=== PATIENT | male | born 1935 | race Caucasian/White ===

== ENCOUNTER 2020-05-19 03:11 | Inpatient (IN) | payer MEDICARE, SELFPAY ==
[2020-05-19] VITALS (20 sets, daily range): BP systolic 132–181; BP diastolic 53–80; PULSE 71–90; RESP 13–18; TEMP 35.9–36.8; O2SAT 91–99; BMI 34.9
--- NOTE | ~2020-05-19 | CT_ITS ---
EXAMINATION: CT abdomen pelvis w con DATE: 05/19/2020 04:58 INDICATION: Urinary retention. Dysuria. Possible bladder stone. TECHNIQUE: Computed tomography (CT) of the abdomen and pelvis was performed with 100 cc Omnipaque 350 intravenous contrast. Automated exposure control and iterative reconstruction technique were employe d. Exam dose: 1404.59 mGy-cm total exam DLP. COMPARISON: None. FINDINGS: Minimal atelectasis at the lower lungs. Normal heart size. Coronary artery prominent calcification. There is trace pericardial fluid. No pleural effusion. 1.4 cm and 2.8 cm hepatic cyst. Calcified hepatic and splenic granulomas consistent with old granulom atous disease. 3.2 cm concentrically calcified gallstone the fundus of the gallbladder. No gallbladder wall thickeni ng or pericholecystic fluid or inflammation. No bile duct or pancreatic duct dilatation. No pancreati c mass lesion or calcification. Normal splenic size. Normal morphology of the adrenal glands. There are multiple bilateral renal cysts, the largest on the right measuring up to 5 cm, the largest on the left up to 5.1 cm. No ureteral calculus or hydroureteronephrosis. There is extensive calcification of the abdominal aorta and branches including iliac arteries. Promin ent calcification of celiac artery and branches, prominent calcification at the origin of the superio r mesenteric artery and renal arteries. No abdominal aortic aneurysm. No intraperitoneal or retroperitoneal or pelvic mass lesion or adenopathy or ascites. Normal appendix. No bowel obstruction, bowel wall thickening, pneumatosis or intraperitoneal free air . There are bilateral fat-containing inguinal hernias. A Patel catheter is present; the balloon is located within the prosthetic urethra. The tip of the Fol ey catheter is barely into the bladder lumen. There is prominent prostatomegaly as well as multiple prostate calcifications. There are multiple sto quinn in the urinary bladder, measuring up to 9.6 mm. There is prominent soft tissue density in the dep endent aspect of the bladder which may represent blood clot 3 versus prostate or urinary bladder neop lasm. There is emphysema of the urinary bladder wall suggesting emphysematous cystitis. There is a prominent sclerotic lesion of the junction of the left femoral head and neck, raising conc dre for possible osteosclerotic metastasis from prostate cancer. Alternatively, this might be a bone island. Consider radionuclide bone scan as clinically appropriate. 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 IMPRESSION: Emphysematous cystitis Bladder stones Debris or blood clot in the dependent aspect of the urinary bladder. Urinary bladder malignancy is no t excluded Severe prostate enlargement, prostate malignancy is not excluded Patel catheter is inflated in the prostatic urethra Cholelithiasis Hepatic and bilateral renal cysts Sclerotic lesion of proximal left femur; consider radionuclide bone scan to differentiate osteosclero tic metastasis from prostate cancer versus benign bone island Reviewed, dictated and finalized at [facility]. Reviewed, dictated and finalized at [facility]. IMPRESSION: Emphysematous cystitis Bladder stones Debris or blood clot in the dependent aspect of the urinary bladder. Urinary bl adder malignancy is not excluded Severe prostate enlargement, prostate malignancy is not excluded Patel catheter is inflated in the prostatic urethra Cholelithiasis Hepatic and bilater
--- NOTE | 2020-05-19 03:18 | ED.MALEGU ---
HPI - Male Genitourinary General Chief complaint: Urogenital-Male Stated complaint: dysuria Time Seen by Provider: 05/19/20 03:17 Source: patient and family Mode of arrival: ambulatory Limitations: no limitations History of Present Illness HPI Narrative: Patient is a 85-year-old gentleman with a history of nephrolithiasis who presents for evaluation of dysuria and hematuria in the setting of recent Patel catheter placement and bladder stone removal. Patient reports that on Thursday 05/17, the patient had any stones removed by Dr. Simeon, in [place], [place]. Patient was then discharged home following the procedure and had inability to urinate later in the afternoon on Saturday, so presented to [facility] for evaluation of urinary retention and had a Patel catheter placed. The patient was then discharged home from the hospital on Saturday, and on developed hematuria and that the catheter was not draining urine, so the patient presented back to [facility] for evaluation of this, and catheter was replaced with a larger Patel catheter, flushed and then was draining appropriately, thus was sent home. The patient was home for approximately 6 hours before he started to experience pain with urination and drainage of the catheter. Pain is described as burning in nature. He denies any flank pain, fever, nausea or vomiting. He denies upper abdominal pain. Patient called his urology group and he was prompted to come to this facility. Review of Systems Review of Systems: Narrative: CONSTITUTIONAL: Denies fever, chills CARDIOVASCULAR: Denies chest pain RESPIRATORY: Denies cough or dyspnea. GASTROINTESTINAL: Denies abdominal pain, nausea, vomiting GENITOURINARY: Reports dysuria and hematuria SKIN: Denies rash or itching. MUSCULOSKELETAL: Denies back pain, joint pain, or myalgia. NEUROLOGIC: Denies headache, numbness, or weakness. [facility] Past Medical History Medical History BPH (benign prostatic hyperplasia) CVA (cerebral vascular accident) Diabetes Hypertension Nephrolithiasis Social History Social History (Updated 05/19/20 @ 04:24 by Kassandra Faulkner MD) Alcohol intake: never Substance use: never Living arrangements: with family Gender identity (if verbalized by the patient): Male Exam Narrative: Exam Narrative: GENERAL: Awake, alert, conversant HEAD: Normocephalic, atraumatic. EYES: PERRLA and EOMI. ENT: Nares clear, no rhinorrhea or epistaxis. Mucous membranes moist. NECK: Supple. CHEST: No respiratory distress, breathing even and non labored HEART: Regular rate, sinus rhythm ABDOMEN: Obese, Non distended, non tender : Indwelling Patel catheter, gross hematuria present EXTREMITIES: Normal range of motion. No edema. SKIN: Warm, dry, no rash. NEURO:No focal deficits. Alert and oriented x3 Course Vital Signs Vital signs: Vital Signs Temperature 36.4 C 05/19/20 03:14 Pulse Rate 71 05/19/20 03:14 Respiratory Rate 16 05/19/20 03:14 Blood Pressure 152/61 H 05/19/20 03:14 Pulse Oximetry 97 05/19/20 03:14 Temperature 36.4 C 05/19/20 03:14 Pulse Rate 71 05/19/20 03:14 Respiratory Rate 16 05/19/20 03:14 Blood Pressure 152/61 H 05/19/20 03:14 Pulse Oximetry 97 05/19/20 03:14 MDM - Male Genitourinary MDM Narrative Medical decision making narrative: Patient presented for evaluation of dysuria and hematuria in the setting of recent Patel catheter placement due to urinary retention secondary to bladder stone removal. At the time of assessment, ABCs are intact and vital signs are stable. Patient is hypertensive, does have a history of hypertension and has not taken his medications this morning. Patient with a leukocytosis of 14.6. Hemoglobin and hematocrit is stable. No acute kidney injury or electrolyte abnormality. Urinalysis notable for trace leukocyte esterase and white blood cells present. Given so
[2020-05-19 04:03] LABS: Basophils Percent Auto 0.2 % (0.2-1.2); Eosinophils Absolute Auto 0.1 K/mm3 (0-0.3); Eosinophils Percent Auto 0.8 % (0-4.4); Hematocrit 38.3 % (42.0-52.0); Hemoglobin 13.3 g/dL (14.0-18.0); Immature Granulocyte Absolute 0.07 K/mm3 (0.00-0.031); Immature Granulocyte Percent A 0.5 % (0-0.5); Lymphocytes Absolute Auto 1.11 K/mm3 (0.9-3.2); Lymphocytes Percent Auto 7.6 % (18.3-44.2); Mean Corpuscular HGB Conc 34.7 g/dl (32-36); Mean Corpuscular Hemoglobin 32.8 pg (26-34); Mean Corpuscular Volume 94.3 fl (80-100); Mean Platelet Volume 9.9 fl (7.4-10.4); Monocytes Percent Auto 13.5 % (2.6-8.5); Neutrophils Absolute Auto 11.3 K/mm3 (1.3-6.7); Neutrophils Percent Auto 77.4 % (45.5-73.1); Platelet Count Result 182 k/mm3 (150-375); Red Blood Count 4.06 M/mm3 (4.6-6.20); Red Cell Distribution Width 13.2 % (11.5-14.5); White Blood Count 14.6 K/mm3 (4.5-10.0)
[2020-05-19 04:15] LABS: Anion Gap 10 mmol/L (8-16); Blood Urea Nitrogen 18 mg/dL (9-20); Calcium 9.5 mg/dL (8.4-10.2); Carbon Dioxide 24 mmol/L (22-30); Chloride 104 mmol/L (98-107); Estimated CRCL calculation 80 ml/min; Estimated Glomerular Filt Rate > 60; Glucose 161 mg/dL (75-110); Potassium 3.3 mmol/L (3.4-5.0); Sodium 138 mmol/L (137-145)
[2020-05-19 04:32] LABS: Add Urine Microscopic? YES; Appearance Urine Cloudy (Clear); Bilirubin Urine Negative (Negative); Blood Urine 2+ (Negative); Glucose Urine UA 1+ mg/dL (Negative); Ketones Urine Negative (Negative); Leukocyte Esterase Ur Trace LEU/UL (Negative); Nitrate Urine Negative (Negative); Protein Urine 2+ mg/dL (Negative); RBC Urine >75 /hpf (0-2); Specific Grav Ur 1.012 (1.001-1.035); Urobilinogen Urine Negative mg/dL (<2.0); WBC Urine 51-75 /hpf
[2020-05-19 04:33] LABS: Color Urine Red (Yellow)
[2020-05-19] MEDS: MORPHINE SULFATE (*CRX) 4 MG/ML INJ IV PUSH ×3 (05:05→11:09)
[2020-05-19] MEDS: SODIUM CHLORIDE 0.9% IV 1,000 ML 999 ML IV CONT (05:13)
[2020-05-19] MEDS: hydrALAZINE HCL 20 MG/ML VIAL IV PUSH (07:05)
--- NOTE | 2020-05-19 08:20 | WPDANESEPPF ---
Anes - Initial Pre Proc Eval Procedure: Operation Date: 05/19/20 12:30 Proposed Procedures p Cystoscopy, Evacuation Bladder Clots - Nathan Agrawal MD Date/Time: 05/19/20 08:20 Surgeon: Isacc Wan MD Pre Op Diagnosis: bladder clot,hypertnsion,urinary retention Patient Data Age: 85 Gender: M Height: 1.85 m Weight: 122 kg Last Vital Signs Temp 36.4 C 05/19/20 03:14 Pulse 72 05/19/20 07:15 Resp 16 05/19/20 07:15 BP 155/66 H 05/19/20 07:15 Pulse Ox 98 05/19/20 07:15 Allergies Allergy/AdvReac Type Severity Reaction Status Date / Time atorvastatin Allergy Mild Hives Verified 05/19/20 12:03 clonidine [From Catapres] Allergy Hives Verified 05/19/20 12:03 Home Medications Medication Instructions Recorded Confirmed Type amlodipine 10 mg PO DAILY 05/19/20 05/19/20 History aspirin [Adult Aspirin EC Low 81 mg PO DAILY 05/19/20 05/19/20 History Strength] atenolol [Tenormin] 25 mg PO BID 05/19/20 05/19/20 History atorvastatin [Lipitor] 40 mg PO DAILY 05/19/20 05/19/20 History clopidogrel [Plavix] 75 mg PO DAILY 05/19/20 05/19/20 History cyproheptadine 4 mg PO DAILY 05/19/20 05/19/20 History escitalopram oxalate 10 mg PO HS 05/19/20 05/19/20 History famotidine 20 mg PO DAILY 05/19/20 05/19/20 History fenofibrate nanocrystallized 145 mg PO DAILY 05/19/20 05/19/20 History finasteride 5 mg PO DAILY 05/19/20 05/19/20 History hydrochlorothiazide 12.5 mg PO DAILY 05/19/20 05/19/20 History metformin 500 mg PO BID 05/19/20 05/19/20 History nitrofurantoin monohyd/m-cryst 100 mg PO Q12H 05/19/20 05/19/20 History [Macrobid] olopatadine [Pataday] drp OPHTHALMIC (EYE) DAILY PRN 05/19/20 History rifampin 300 mg PO BID 05/19/20 05/19/20 History Laboratory Tests 05/19/20 05/19/20 05/19/20 03:58 03:58 04:04 WBC 14.6 K/mm3 H K/mm3 (4.5-10.0) RBC 4.06 M/mm3 L M/mm3 (4.6-6.20) Hgb 13.3 g/dL L g/dL (14.0-18.0) Hct 38.3 % L % (42.0-52.0) MCV 94.3 fl fl (80-100) MCH 32.8 pg pg (26-34) MCHC 34.7 g/dl g/dl (32-36) RDW 13.2 % % (11.5-14.5) Plt Count 182 k/mm3 k/mm3 (150-375) MPV 9.9 fl fl (7.4-10.4) Immature Gran % (Auto) 0.5 % % (0-0.5) Neut % (Auto) 77.4 % H % (45.5-73.1) Lymph % (Auto) 7.6 % L % (18.3-44.2) [place] % (Auto) 13.5 % H % (2.6-8.5) Eos % (Auto) 0.8 % % (0-4.4) Baso % (Auto) 0.2 % % (0.2-1.2) Lymph # (Auto) 1.11 K/mm3 K/mm3 (0.9-3.2) [place] # (Auto) 2.0 K/mm3 H K/mm3 (0.1-0.6) Eos # (Auto) 0.1 K/mm3 K/mm3 (0-0.3) Baso # (Auto) 0.0 K/mm3 K/mm3 (0.0-0.1) Abs Immat Gran (auto) 0.07 K/mm3 H K/mm3 (0.00-0.031) Absolute Neuts (auto) 11.3 K/mm3 H K/mm3 (1.3-6.7) Absolute Nucleated RBC 0.0 K/mm3 K/mm3 (0.0-0.012) Nucleated RBC % 0.0 % % (0.0-0.2) Sodium 138 mmol/L mmol/L (137-145) Potassium 3.3 mmol/L L mmol/L (3.4-5.0) Chloride 104 mmol/L mmol/L (98-107) Carbon Dioxide 24 mmol/L mmol/L (22-30) Anion Gap 10 mmol/L mmol/L (8-16) BUN 18 mg/dL mg/dL (9-20) Creatinine 0.80 mg/dL mg/dL (0.7-1.3) Estim Creat Clear Calc 80 ml/min ml/min Estimated GFR > 60 (59 - ) Glucose 161 mg/dL H mg/dL (75-110) Calcium 9.5 mg/dL mg/dL (8.4-10.2) Urine Color Red H (Yellow) Urine Appearance Cloudy H (Clear) Urine pH 7.0 (5.0-9.0) Ur Specific Horace 1.012 (1.001-1.035) Urine Protein 2+ mg/dL H mg/dL (Negative) Urine Glucose (UA) 1+ mg/dL H mg/dL (Negative) Urine Ketones Negative mg/dL mg/dL (Negative) Ur Blood (Man) 2+ H (Negative) Urine Nitrate Negative (Negative) Urine Bilirubin Negative
--- NOTE | 2020-05-19 08:55 | PC.NURSE ---
This patient, Cody Stanford, was admitted to Medical Room 349-01. Patient/family oriented to hospital policies and general routines including ID bracelet, bed and alarms, visiting hours, pain management, procedures, bathroom and other care routines, personal items, smoking policy, room service/diet, and visiting hours. Information on how to activate the Rapid Response Team has been discussed. Patient/Family are encouraged to report perceived risks to care and to ask questions if they do not understand what they are told or what they should do.
[2020-05-19 09:19] LABS: Hematocrit 39.1 % (42.0-52.0); Hemoglobin 13.7 g/dL (14.0-18.0); Mean Corpuscular Hemoglobin 32.9 pg (26-34); Mean Corpuscular Volume 93.8 fl (80-100); Mean Platelet Volume 9.9 fl (7.4-10.4); Platelet Count Result 191 k/mm3 (150-375); Red Blood Count 4.17 M/mm3 (4.6-6.20); Red Cell Distribution Width 13.2 % (11.5-14.5); White Blood Count 15.5 K/mm3 (4.5-10.0)
--- NOTE | 2020-05-19 10:35 | WPDURCON ---
Assessment and Plan Assessment and plan (1) Hematuria: Code(s): R31.9 - Hematuria, unspecified Status: Acute Assessment and Plan: Will plan to go to the OR today: Cystoscopy with bladder clot evacuation. (2) Blood clot in bladder: Code(s): N32.89 - Other specified disorders of bladder Status: Acute Assessment and Plan: Keep NPO, obtain consent. (3) Elevated PSA: Code(s): R97.20 - Elevated prostate specific antigen [PSA] Status: Acute Assessment and Plan: PSA of 4.16 (8.32 adjusted) not terribly high for his age, but would need further evaluation by Dr. Stallings. Urology Consult Note HPI Date Seen: 05/19/20 Requesting Physician: Isacc Wan MD Primary Care Provider: Rui Deluna, Consult Narrative Narrative: Cody Stanford is a 85 year old male who presented to our ER around 0300 this morning for gross hematuria, abdominal pain and a catheter that wouldn't drain. He had a bladder stone removal on Saturday05/17/[address] Stallings in [place]. He was discharged home and then became unable to urinate, therefore he went back to the ER in [place] Saturday05/18/2020 for retention and had his henderson placed, he was irrigated and discharged home. He then noted clogging of his henderson last night and was unable to see it drain, he states the urine has been very bloody since. He denies flank or abdominal pain, nausea, vomiting, fever or chills. WBC is 14.6 and creatinine is 0.80, UA appears to show a UTI, but urine culture is pending. CT abdomen/pelvis shows severely enlarged prostate and clots in the bladder, his henderson is in place, but there is a noted bone lesion in the femur, which is concerning for possible metastatic prostate cancer. PSA on 04/18/2020 from our office records show a level of 4.16 (adjusted, 8.32 on FInasteride). Review of Systems Cardiovascular: Cardiovascular: Denies chest pain Respiratory: Respiratory: Reports no additional respiratory complaints Gastrointestinal: Gastrointestinal: Reports abdominal pain, Denies nausea and Denies vomiting Genitourinary: Genitourinary: Reports hematuria and Reports other (henderson in place) [facility] Past Medical History Medical History BPH (benign prostatic hyperplasia) CVA (cerebral vascular accident) Diabetes Hypertension Nephrolithiasis Obesity Social History Social History Smoking status: Never smoker Alcohol intake: former Substance use: never Living arrangements: with family Gender identity (if verbalized by the patient): Male Spiritual care concerns: No Meds Home Medications and Allergies Home Medications Medication Instructions Recorded Confirmed Type amlodipine 05/19/20 History aspirin [Adult Aspirin EC Low 05/19/20 History Strength] atenolol [Tenormin] 05/19/20 History atorvastatin [Lipitor] 05/19/20 05/19/20 History clopidogrel [Plavix] 05/19/20 History cyproheptadine 05/19/20 History escitalopram oxalate mg 05/19/20 History famotidine 05/19/20 History fenofibrate nanocrystallized mg PO 05/19/20 History finasteride mg 05/19/20 History hydrochlorothiazide 05/19/20 History metformin mg 05/19/20 History olopatadine [Pataday] drp 05/19/20 History tamsulosin mg PO 05/19/20 05/19/20 History Allergies Allergy/AdvReac Type Severity Reaction Status Date / Time atorvastatin Allergy Mild Hives Verified 05/19/20 08:01 clonidine [From Catapres] Allergy Hives Verified 05/19/20 08:01 Vital Signs Vital Signs - 24 hr 05/19/20 03:14 05/19/20 07:15 05/19/20 08:50 Temperature 97.6 F Pulse Rate 71 72 75 Respiratory Rate 16 16 16 Blood Pressure 152/61 H 155/66 H 181/66 H Pulse Oximetry 97 98 98 05/19/20 09:48 Temperature 97.1 F L Pulse Rate 82 Respiratory Rate 16 Blood Pressure 167/54 H Pulse Oximetry 99 Exam Resp: Effort
--- NOTE | 2020-05-19 12:00 | PC.NURSE ---
Pt to OR per bed.
--- NOTE | 2020-05-19 12:35 | WPDHPUPDATE1 ---
History and Physical Update Update Date/Time: 05/19/20 12:35 History and Physical has been reviewed, including an updated exam of the patient. There are NO changes in the patient's condition. Risks, benefits, and alternatives have been discussed and questions answered. Patient agrees to proceed with procedure.
[2020-05-19] MEDS: LIDOCAINE HCL 2% GEL UROJET 10 ML PKG MUCOUS MEM (12:51)
--- NOTE | 2020-05-19 13:21 | P.OP_ITS ---
Procedure Note - Detailed Date of procedure: 05/19/20 Pre-op diagnosis: bladder clot,hypertnsion,urinary retention Post-op diagnosis: same Procedure performed: Cystoscopy with clot evacuation, extraction of bladder calculi x3, fulguration of bladder neck prostatic urethra. Description of procedure: Patient is taken to the operative suite and correctly identified. Once anesthesia was obtained he is placed in the dorsal lithotomy position and prepped and draped usual sterile fashion. Twenty-four Nepali scope was inserted in the bladder. Numerous clots were evacuated approximately 250 cc worth. Reinspection reveals 3 bladder calculi which were retrieved and sent for analysis. There was no active bleeding in the bladder however his bladder neck and prostatic urethra were extremely vascular in of oozing in nature. Using a rollerball we attempted to fulgurated as best we could. Given the fact that he has been on Plavix that is difficult task at this time. We achieved this much hemostasis as we could. 2% viscous lidocaine was inserted urethra and a 24 three-way was placed with 30 cc in the balloon. Catheter was placed on some gentle traction. He is taken recovery stable condition. I will recommend continued holding of Plavix until this bleeding stops. Anesthesia: GLMA Surgeon: Nathan Agrawal MD Drains: Yes Packing: No Pathology: yes Complications: No immediate complications Condition: stable Disposition: PACU
[2020-05-19] MEDS: LACTATED RINGERS 1,000 ML 30 ML IV CONT (13:26)
--- NOTE | 2020-05-19 14:00 | SUR.PHASEI ---
PT AROUSES TO VERBAL STIMULI. SHAKES HEAD YES TO PAIN, THEN FALLS BACK ASLEEP. HOB ELEVATED 30 DEGREES.
--- NOTE | 2020-05-19 14:12 | SUR.PHASEI ---
SAO2 DROPS TO 89-90% ON ROOM AIR. RESP EVEN UNLABORED. P,W,D. O2 2L NC APPLIED.
[2020-05-19 14:22] LABS: Glucose Point of Care 149 (65-105)
--- NOTE | 2020-05-19 14:49 | SUR.PHASEI ---
PT AWAKE AND ALERT. DENIES PAIN. MEETS DISCHARGE CRITIERIA.
--- NOTE | 2020-05-19 16:12 | PM.IMHP ---
H&P: HPI History of Present Illness Date/Time: 05/19/20 16:12 Chief complaint: bladder clot,hypertnsion,urinary retention Narrative: Cody Stanford is a 85 year old male see history of kidney stone he recently was seen by his urologist on 05/17 and had a stone removed and Patel catheter was placed, patient states he was doing fine later that day he developed the hematuria and was difficult to urinate and his Patel was not draining, patient went back to the emergency department in [place], his Patel was irrigated and reinserted patient was able to drain it was discharged home however he says after 6 hours he again developed difficulty draining his Patel, he contacted his urologist and patient was asked return to the emergency department here. in the emergency depart his Patel was replaced, there was a concerned the patient may have UTI started the patient on Rocephin, under stress and pain patient blood pressure was elevated and was given hydralazine. currently patient states is feeling little better is scheduled to see his urologist and will have cystoscopy and blood clot evacuation and further recommendation to follow. Review of Systems Review of Systems: All systems reviewed & are unremarkable except as noted in HPI and below PMFSH Past Medical History Medical History BPH (benign prostatic hyperplasia) CVA (cerebral vascular accident) Diabetes Hypertension Nephrolithiasis Obesity Social History Social History Smoking status: Never smoker Alcohol intake: former Substance use: never Living arrangements: with family Gender identity (if verbalized by the patient): Male Spiritual care concerns: No Meds Home Medications and Allergies Home Medications Medication Instructions Recorded Confirmed Type amlodipine 10 mg PO DAILY 05/19/20 05/19/20 History aspirin [Adult Aspirin EC Low 81 mg PO DAILY 05/19/20 05/19/20 History Strength] atenolol [Tenormin] 25 mg PO BID 05/19/20 05/19/20 History atorvastatin [Lipitor] 40 mg PO DAILY 05/19/20 05/19/20 History clopidogrel [Plavix] 75 mg PO DAILY 05/19/20 05/19/20 History cyproheptadine 4 mg PO DAILY 05/19/20 05/19/20 History escitalopram oxalate 10 mg PO HS 05/19/20 05/19/20 History famotidine 20 mg PO DAILY 05/19/20 05/19/20 History fenofibrate nanocrystallized 145 mg PO DAILY 05/19/20 05/19/20 History finasteride 5 mg PO DAILY 05/19/20 05/19/20 History hydrochlorothiazide 12.5 mg PO DAILY 05/19/20 05/19/20 History metformin 500 mg PO BID 05/19/20 05/19/20 History nitrofurantoin monohyd/m-cryst 100 mg PO Q12H 05/19/20 05/19/20 History [Macrobid] olopatadine [Pataday] drp OPHTHALMIC (EYE) DAILY PRN 05/19/20 History rifampin 300 mg PO BID 05/19/20 05/19/20 History Allergies Allergy/AdvReac Type Severity Reaction Status Date / Time atorvastatin Allergy Mild Hives Verified 05/19/20 12:03 clonidine [From Catapres] Allergy Hives Verified 05/19/20 12:03 Vital Signs Vital Signs - 24 hr 05/19/20 03:14 05/19/20 07:15 05/19/20 08:50 Temperature 97.6 F Pulse Rate 71 72 75 Respiratory Rate 16 16 16 Blood Pressure 152/61 H 155/66 H 181/66 H Pulse Oximetry 97 98 98 05/19/20 09:48 05/19/20 12:00 05/19/20 13:26 Temperature 97.1 F L 97.6 F Pulse Rate 82 82 81 Respiratory Rate 16 14 Blood Pressure 167/54 H 132/53 L Pulse Oximetry 99 97 05/19/20 13:40 05/19/20 13:55 05/19/20 14:10 Temperature Pulse Rate 89 88 90 Respiratory Rate 13 13 14 Blood Pressure 168/65 H 172/70 H 164/68 H Pulse Oximetry 98 98 91 05/19/20 14:25 05/19/20 14:40 05/19/20 15:15 Temperature 97.1 F L Pulse Rate 90 89 85 Respiratory Rate 18 15 16 Blood Pressure 148/63 H 144/61 H 154/60 H Pulse Oximetry 94 96 98 05/19/20 15:52 Temperature 97.1 F L Pulse Rate 85 Respiratory Rate 16 Blood Pressure 160/56 H Pulse Oximetry 98 Exam Narrative:
[2020-05-19] MEDS: NITROFURANTOIN MONOHYD MACROCR 100 MG CAP PO (16:13)
[2020-05-19] MEDS: DEXTROSE 5%/LACTATED RINGERS 1,000 ML 125 ML IV CONT ×2 (16:14→23:43)
[2020-05-19] MEDS: metFORMIN HCL 500 MG TABLET PO (17:30)
[2020-05-19] MEDS: atenoloL 25 MG TABLET PO (17:30)
[2020-05-19] MEDS: rifAMPin 300 MG CAPSULE PO (17:30)
[2020-05-19] MEDS: DOCUSATE SODIUM 100 MG CAPSULE PO (17:30)
[2020-05-19] MEDS: ESCITALOPRAM OXALATE 10 MG TABLET PO (20:02)
[2020-05-20] VITALS (12 sets, daily range): BP systolic 160–189; BP diastolic 51–64; PULSE 69–80; RESP 18; TEMP 36.3–36.8; O2SAT 94–98
[2020-05-20] MEDS: NITROFURANTOIN MONOHYD MACROCR 100 MG CAP PO ×2 (03:33→15:40)
[2020-05-20 05:46] LABS: Hematocrit 32.3 % (42.0-52.0); Hemoglobin 11.1 g/dL (14.0-18.0)
[2020-05-20 05:59] LABS: Anion Gap 7 mmol/L (8-16); Blood Urea Nitrogen 13 mg/dL (9-20); Calcium 8.5 mg/dL (8.4-10.2); Carbon Dioxide 28 mmol/L (22-30); Chloride 105 mmol/L (98-107); Estimated CRCL calculation 80 ml/min; Estimated Glomerular Filt Rate > 60; Glucose 168 mg/dL (75-110); Potassium 2.9 mmol/L (3.4-5.0); Sodium 140 mmol/L (137-145)
[2020-05-20] MEDS: rifAMPin 300 MG CAPSULE PO ×2 (06:35→15:40)
[2020-05-20] MEDS: DEXTROSE 5%/LACTATED RINGERS 1,000 ML 125 ML IV CONT ×2 (08:45→20:40)
[2020-05-20] MEDS: FENOFIBRATE NANOCRYSTALLIZED 145 MG TABLET PO (08:46)
[2020-05-20] MEDS: DOCUSATE SODIUM 100 MG CAPSULE PO ×2 (08:46→17:16)
[2020-05-20] MEDS: hydroCHLOROthiazide 12.5 MG CAPSULE PO (08:46)
[2020-05-20] MEDS: amLODIPine BESYLATE 5 MG TABLET 10 MG PO (08:46)
[2020-05-20] MEDS: metFORMIN HCL 500 MG TABLET PO ×2 (08:46→17:16)
[2020-05-20] MEDS: FAMOTIDINE 20 MG TABLET PO (08:47)
[2020-05-20] MEDS: ATORVASTATIN 40 MG TABLET PO (08:47)
[2020-05-20] MEDS: CYPROHEPTADINE HCL 4 MG TABLET PO (08:47)
[2020-05-20] MEDS: CEPHALEXIN 500 MG CAPSULE PO ×4 (08:47→20:47)
[2020-05-20] MEDS: atenoloL 25 MG TABLET PO ×2 (08:47→17:15)
[2020-05-20] MEDS: FINASTERIDE 5 MG TABLET PO (08:48)
[2020-05-20] MEDS: HYDROcodone/acetaminophen (*CRX) 5-325 MG TABLET 1 TAB PO (08:53)
[2020-05-20 09:31] LABS: Hematocrit 33.4 % (42.0-52.0); Hemoglobin 11.3 g/dL (14.0-18.0); Mean Corpuscular HGB Conc 33.8 g/dl (32-36); Mean Corpuscular Hemoglobin 33.1 pg (26-34); Mean Corpuscular Volume 97.9 fl (80-100); Mean Platelet Volume 10.7 fl (7.4-10.4); Platelet Count Result 164 k/mm3 (150-375); Red Blood Count 3.41 M/mm3 (4.6-6.20); Red Cell Distribution Width 13.5 % (11.5-14.5); White Blood Count 10.5 K/mm3 (4.5-10.0)
[2020-05-20] MEDS: POTASSIUM CHLORIDE 20 MEQ PACKET (FOR LIQUID) 40 MEQ PO (11:01)
--- NOTE | 2020-05-20 13:27 | PM.IMPN ---
Progress Note: A&P Assessment and Plan (1) Acute retention of urine: Code(s): R33.8 - Other retention of urine Status: Acute Assessment and Plan: 05/20/20 13:27 Cody Stanford is a 85 year old male see history of kidney stone he recently was seen by his urologist on 05/17 and had a stone removed and Patel catheter was placed, patient states he was doing fine later that day he developed the hematuria and was difficult to urinate and his Patel was not draining, patient went back to the emergency department in [place], his Patel was irrigated and reinserted patient was able to drain it was discharged home however he says after 6 hours he again developed difficulty draining his Patel, he contacted his urologist and patient was asked return to the emergency department here. in the emergency depart his Patel was replaced, there was a concerned the patient may have UTI started the patient on Rocephin, under stress and pain patient blood pressure was elevated and was given hydralazine. currently patient states is feeling little better is scheduled to see his urologist and will have cystoscopy and blood clot evacuation and further recommendation to follow. On 05/19 patient was seen by urologist and taken to urology lab the bladder was irrigated and 3 ways Patel was placed for CBI it was difficult to control the bleeding as patient had taking Plavix, today 05/20 CBI continue to for and the urine is more pinkish starter than red, patient states is feeling much better has less pain, patient denies any abdominal pain nausea or vomiting fever or chills, plan is to continue CBI until urine is clear with as less blood as possible, patient will be seen by urology and further recommendation to follow and discharge plan. patient's is present in the room. (2) Hypertension: Code(s): I10 - Essential (primary) hypertension Status: Inactive Assessment and Plan: continue home regimen and monitor (3) Diabetes: Code(s): E11.9 - Type 2 diabetes mellitus without complications Status: Inactive Assessment and Plan: will continue home regimen and monitor Subjective Date/time seen: 05/20/20 13:27 Cody Stanford is a 85 year old male see history of kidney stone he recently was seen by his urologist on 05/17 and had a stone removed and Patel catheter was placed, patient states he was doing fine later that day he developed the hematuria and was difficult to urinate and his Patel was not draining, patient went back to the emergency department in [place], his Patel was irrigated and reinserted patient was able to drain it was discharged home however he says after 6 hours he again developed difficulty draining his Patel, he contacted his urologist and patient was asked return to the emergency department here. in the emergency depart his Patel was replaced, there was a concerned the patient may have UTI started the patient on Rocephin, under stress and pain patient blood pressure was elevated and was given hydralazine. currently patient states is feeling little better is scheduled to see his urologist and will have cystoscopy and blood clot evacuation and further recommendation to follow. On 05/19 patient was seen by urologist and taken to urology lab the bladder was irrigated and 3 ways Patel was placed for CBI it was difficult to control the bleeding as patient had taking Plavix, today 05/20 CBI continue to for and the urine is more pinkish starter than red, patient states is feeling much better has less pain, patient denies any abdominal pain nausea or vomiting fever or chills, plan is to continue CBI until urine is clear with as less blood as possible, patient will be seen by urology and further recommendation to follow and discharge plan. patient's is present in the room. Review of Systems Review of Systems: All systems reviewed & are unremarkable except as noted in HPI and below Exam Narrative: Ex
--- NOTE | 2020-05-20 14:22 | WPDANESPN ---
Anes - Prog Note Post-Op Date/Time: 05/20/20 14:22 Cardiovascular status: normal Respiratory status: normal Airway patency: baseline Mental status: baseline Post-Op hydration status: normal Vital Signs: Last Vital Signs Temp 98.3 F 05/20/20 05:55 Pulse 70 05/20/20 12:00 Resp 18 05/20/20 05:55 BP 189/64 H 05/20/20 05:55 Pulse Ox 94 05/20/20 09:45 Pain Score (VAS): 07/31 I/O: Intake & Output 05/19/20 05/20/20 05/20/20 23:59 07:59 15:59 Intake Total 1292 1250 480 Output Total 750 Balance 1292 500 480 Laboratory Tests 05/20/20 05:14 05/20/20 05:14 05/19/20 05/20/20 05/20/20 14:19 05:11 05:14 WBC 10.5 H RBC 3.41 L Hgb 11.3 L 11.1 L Hct 33.4 L 32.3 L MCV 97.9 MCH 33.1 MCHC 33.8 RDW 13.5 Plt Count 164 MPV 10.7 H Sodium Potassium Chloride Carbon Dioxide Anion Gap BUN Creatinine Estim Creat Clear Calc Estimated GFR Glucose POC Capillary Glucose 149 H Calcium 05/20/20 05:14 WBC RBC Hgb Hct MCV MCH MCHC RDW Plt Count MPV Sodium 140 Potassium 2.9 L Chloride 105 Carbon Dioxide 28 Anion Gap 7 L BUN 13 D Creatinine 0.80 Estim Creat Clear Calc 80 Estimated GFR > 60 Glucose 168 H POC Capillary Glucose Calcium 8.5 Microbiology 05/19/20 04:04 Urine Clean Catch Urine Culture - Final Post-procedural complaints: none Patient Feedback: Patient satisfied with anesthetic care.
--- NOTE | 2020-05-20 15:12 | WPDUROPN2 ---
Progress Note: A&P Assessment and Plan (1) Blood clot in bladder: Code(s): N32.89 - Other specified disorders of bladder Status: Acute (2) Hematuria: Code(s): R31.9 - Hematuria, unspecified Status: Acute Assessment and Plan: Wean CBI to off when clear. Patient will go home with henderson catheter when urine is clear, then follow up in the office with Dr. Stallings for a voiding trial in a week or two in [place]. (3) Acute retention of urine: Code(s): R33.8 - Other retention of urine Status: Acute Subjective Subjective Date/Time Seen: 05/20/20 15:12 POD #1 Cystoscopy, bladder clot removal, fulgeration of bladder, bladder stone removal. Patient doing well, urine remains pink on CBI. Review of Systems Cardiovascular: Cardiovascular: Denies chest pain Respiratory: Respiratory: Reports no additional respiratory complaints Gastrointestinal: Gastrointestinal: Denies abdominal pain, Denies nausea and Denies vomiting Genitourinary: Genitourinary: Reports hematuria Exam Resp: Effort & Inspection: normal respiratory effort Cardio: Rate: regular rate GI: GI Palp: Yes Soft to palpation and No Tenderness to palpation present (GI) : General: Yes no CVA tenderness Urinary Catheter: Urinary Catheter: patent and draining, urine clear and urine pink Extrem: General: no edema Objective Data Vital Signs Vital Signs: Vital Signs - 24 hr 05/19/20 15:15 05/19/20 15:52 05/19/20 16:00 Temperature 97.1 F L 97.1 F L Pulse Rate 85 85 85 Respiratory Rate 16 16 Blood Pressure 154/60 H 160/56 H Pulse Oximetry 98 98 05/19/20 16:34 05/19/20 17:00 05/19/20 17:30 Temperature 96.7 F L 96.8 F L Pulse Rate 81 86 86 Respiratory Rate 16 18 Blood Pressure 139/59 L 175/65 H Pulse Oximetry 99 96 05/19/20 19:59 05/19/20 20:00 05/19/20 23:39 Temperature 98.2 F 97.9 F Pulse Rate 79 75 72 Respiratory Rate 18 17 Blood Pressure 178/80 H 169/66 H Pulse Oximetry 98 95 05/20/20 00:00 05/20/20 04:00 05/20/20 05:55 Temperature 98.3 F Pulse Rate 72 69 75 Respiratory Rate 18 Blood Pressure 189/64 H Pulse Oximetry 97 05/20/20 08:00 05/20/20 08:47 05/20/20 09:45 Temperature Pulse Rate 77 75 Respiratory Rate Blood Pressure Pulse Oximetry 94 05/20/20 12:00 05/20/20 15:02 Temperature 97.8 F Pulse Rate 70 71 Respiratory Rate 18 Blood Pressure 162/57 H Pulse Oximetry 98 Intake/Output Intake/Output: Intake & Output 05/17/20 05/18/20 05/19/20 05/20/20 23:59 23:59 23:59 23:59 Intake Total 2592 1730 Output Total 5800 750 Balance -3208 980 Meds/Results Medications: Active Medications Generic Name Dose Route Start Last Admin Trade Name Freq PRN Reason Stop Dose Admin Hydrocodone Bitart/Acetaminophen 1 tab 05/19/20 14:49 05/20/20 08:53 Hydrocodone/Acetaminophen (*Crx) 5-325 Mg Tablet PO 1 tab Q4H PRN Administration Pain Rated 1-6 Amlodipine Besylate 10 mg 05/20/20 09:00 05/20/20 08:46 Amlodipine Besylate 5 Mg Tablet PO 10 mg DAILY ISIS Administration Atenolol 25 mg 05/19/20 17:00 05/20/20 08:47 Atenolol 25 Mg Tablet PO 25 mg BID ISIS Administration Atorvastatin Calcium 40 mg 05/20/20 09:00 05/20/20 08:47 Atorvastatin 40 Mg Tablet PO 40 mg DAILY ISIS Administration Cephalexin HCl 500 mg 05/20/20 09:00 05/20/20 12:36 Cephalexin 500 Mg Capsule PO 500 mg QID ISIS Administration Cyproheptadine HCl 4 mg 05/20/20 09:00 05/20/20 08:47 Cyproheptadine Hcl 4 Mg Tablet PO 4 mg DAILY ISIS Administration Docusate Sodium 100 mg 05/19/20 17:00 05/20/20 08:46 Docusate Sodium 100 Mg Capsule PO 100 mg BID ISIS Administration Escitalopram Oxalate 10 mg 05/19/20 21:00 05/19/20 20:02 Escitalopram Oxalate 10 Mg Tablet PO 10 mg HS ISIS Administration Famotidine 20 mg 05/20/20 09:00 05/20/20 08:47 Famotidine 20 Mg Tablet PO 20 mg DAILY ISIS A
[2020-05-20 16:09] LABS: Anion Gap 6 mmol/L (8-16); Blood Urea Nitrogen 11 mg/dL (9-20); Calcium 9.2 mg/dL (8.4-10.2); Carbon Dioxide 29 mmol/L (22-30); Chloride 106 mmol/L (98-107); Estimated CRCL calculation 80 ml/min; Estimated Glomerular Filt Rate > 60; Glucose 118 mg/dL (75-110); Magnesium 1.8 mg/dL (1.6-2.3); Potassium 3.5 mmol/L (3.4-5.0); Sodium 141 mmol/L (137-145)
[2020-05-20] MEDS: ESCITALOPRAM OXALATE 10 MG TABLET PO (20:47)
[2020-05-20] MEDS: MORPHINE SULFATE (*CRX) 2 MG/ML INJ IV PUSH (22:00)
[2020-05-21] VITALS: PULSE 67
[2020-05-21] MEDS: HYDROcodone/acetaminophen (*CRX) 5-325 MG TABLET 1 TAB PO ×3 (02:14→10:57)
[2020-05-21] MEDS: NITROFURANTOIN MONOHYD MACROCR 100 MG CAP PO (02:14)
[2020-05-21 04:00] VITALS: PULSE 68
[2020-05-21 04:14] VITALS: BP 154/60; PULSE 73; RESP 18; TEMP 36.1; O2SAT 98
[2020-05-21] MEDS: DEXTROSE 5%/LACTATED RINGERS 1,000 ML 125 ML IV CONT (04:47)
[2020-05-21 06:05] LABS: Anion Gap 8 mmol/L (8-16); Blood Urea Nitrogen 11 mg/dL (9-20); Calcium 8.5 mg/dL (8.4-10.2); Carbon Dioxide 25 mmol/L (22-30); Chloride 106 mmol/L (98-107); Estimated CRCL calculation 90 ml/min; Estimated Glomerular Filt Rate > 60; Glucose 163 mg/dL (75-110); Potassium 3.1 mmol/L (3.4-5.0); Sodium 139 mmol/L (137-145)
[2020-05-21] MEDS: rifAMPin 300 MG CAPSULE PO (06:20)
[2020-05-21 08:00] VITALS: PULSE 73
[2020-05-21] MEDS: CEPHALEXIN 500 MG CAPSULE PO ×2 (08:28→12:24)
[2020-05-21] MEDS: metFORMIN HCL 500 MG TABLET PO (08:28)
[2020-05-21] MEDS: amLODIPine BESYLATE 5 MG TABLET 10 MG PO (08:28)
[2020-05-21] MEDS: ATORVASTATIN 40 MG TABLET PO (08:28)
[2020-05-21 08:29] VITALS: PULSE 75
[2020-05-21] MEDS: FAMOTIDINE 20 MG TABLET PO (08:29)
[2020-05-21] MEDS: hydroCHLOROthiazide 12.5 MG CAPSULE PO (08:29)
[2020-05-21] MEDS: CYPROHEPTADINE HCL 4 MG TABLET PO (08:29)
[2020-05-21] MEDS: atenoloL 25 MG TABLET PO (08:29)
[2020-05-21] MEDS: FINASTERIDE 5 MG TABLET PO (08:29)
[2020-05-21] MEDS: DOCUSATE SODIUM 100 MG CAPSULE PO (08:29)
[2020-05-21] MEDS: FENOFIBRATE NANOCRYSTALLIZED 145 MG TABLET PO (08:29)
[2020-05-21 09:00] LABS: Hematocrit 32.2 % (42.0-52.0); Hemoglobin 10.9 g/dL (14.0-18.0); Mean Corpuscular HGB Conc 33.9 g/dl (32-36); Mean Corpuscular Hemoglobin 32.9 pg (26-34); Mean Corpuscular Volume 97.3 fl (80-100); Mean Platelet Volume 10.7 fl (7.4-10.4); Platelet Count Result 159 k/mm3 (150-375); Red Blood Count 3.31 M/mm3 (4.6-6.20); Red Cell Distribution Width 13.2 % (11.5-14.5); White Blood Count 8.8 K/mm3 (4.5-10.0)
[2020-05-21] MEDS: POTASSIUM CHLORIDE 20 MEQ PACKET (FOR LIQUID) 40 MEQ PO (10:56)
[2020-05-21 12:00] VITALS: PULSE 72
--- NOTE | 2020-05-21 12:24 | WPDUROPN2 ---
Progress Note: A&P Assessment and Plan (1) Hematuria: Qualifiers: Hematuria type: gross Qualified Code(s): R31.0 - Gross hematuria Code(s): R31.9 - Hematuria, unspecified Status: Acute Assessment and Plan: GH s/p cystolithalopaxy on ASA/plavix. Now appears to be resolved. Looks okay for discharge today with santiago, he will follow up with dr grady on saturday at the [place] office continue finasteride hold plavix another 5d if okay. 81 mg asa probably okay to resume if he needs it. Subjective Subjective Date/Time Seen: 05/21/20 12:24 Interval history: CBI clamped at least an hour ago- urine crystal clear Review of Systems Review of Systems: All systems reviewed & are unremarkable except as noted in HPI and below Exam Const: General: cooperative, healthy appearing and no acute distress Nutritional Appearance: overweight Orientation/consciousness: oriented to person, oriented to place and oriented to time Resp: Effort & Inspection: normal respiratory effort Cardio: Rate: regular rate : General: Yes no CVA tenderness Other: urine clear in tubing from henderson-- urine in bag a light pink Urinary Catheter: Urinary Catheter: patent and draining, urine clear and urine pink Back/Spine/Pelvis: Back: no CVA tenderness Extrem: General: no edema Objective Data Vital Signs Vital Signs: Vital Signs - 24 hr 05/20/20 15:02 05/20/20 16:00 05/20/20 17:15 Temperature 36.6 C Pulse Rate 71 74 80 Respiratory Rate 18 Blood Pressure 162/57 H Pulse Oximetry 98 05/20/20 19:33 05/20/20 20:00 05/21/20 00:00 Temperature 36.3 C L Pulse Rate 71 70 67 Respiratory Rate 18 Blood Pressure 160/51 H Pulse Oximetry 97 05/21/20 04:00 05/21/20 04:14 05/21/20 08:00 Temperature 36.1 C L Pulse Rate 68 73 73 Respiratory Rate 18 Blood Pressure 154/60 H Pulse Oximetry 98 05/21/20 08:29 05/21/20 12:00 Temperature Pulse Rate 75 72 Respiratory Rate Blood Pressure Pulse Oximetry Intake/Output Intake/Output: Intake & Output 05/18/20 05/19/20 05/20/20 05/21/20 23:59 23:59 23:59 23:59 Intake Total 6682 3970 2009 Output Total 2655 6860 700 Balance -0668 1217 1873 Meds/Results Medications: Active Medications Generic Name Dose Route Start Last Admin Trade Name Freq PRN Reason Stop Dose Admin Hydrocodone Bitart/Acetaminophen 1 tab 05/19/20 14:49 05/21/20 10:57 Hydrocodone/Acetaminophen (*Crx) 5-325 Mg Tablet PO 1 tab Q4H PRN Administration Pain Rated 1-6 Amlodipine Besylate 10 mg 05/20/20 09:00 05/21/20 08:28 Amlodipine Besylate 5 Mg Tablet PO 10 mg DAILY ISIS Administration Atenolol 25 mg 05/19/20 17:00 05/21/20 08:29 Atenolol 25 Mg Tablet PO 25 mg BID ISIS Administration Atorvastatin Calcium 40 mg 05/20/20 09:00 05/21/20 08:28 Atorvastatin 40 Mg Tablet PO 40 mg DAILY ISIS Administration Cephalexin HCl 500 mg 05/20/20 09:00 05/21/20 08:28 Cephalexin 500 Mg Capsule PO 500 mg QID ISIS Administration Cyproheptadine HCl 4 mg 05/20/20 09:00 05/21/20 08:29 Cyproheptadine Hcl 4 Mg Tablet PO 4 mg DAILY ISIS Administration Docusate Sodium 100 mg 05/19/20 17:00 05/21/20 08:29 Docusate Sodium 100 Mg Capsule PO 100 mg BID ISIS Administration Escitalopram Oxalate 10 mg 05/19/20 21:00 05/20/20 20:47 Escitalopram Oxalate 10 Mg Tablet PO 10 mg HS ISIS Administration Famotidine 20 mg 05/20/20 09:00 05/21/20 08:29 Famotidine 20 Mg Tablet PO 20 mg DAILY ISIS Administration Fenofibrate 145 mg 05/20/20 09:00 05/21/20 08:29 Fenofibrate Nanocrystallized 145 Mg Tablet PO 145 mg DAILY ISIS Administration Finasteride 5 mg 05/20/20 09:00 05/21/20 08:29 Finasteride 5 Mg Tablet PO 5 mg DAILY ISIS Administration Hydrochlorothiazide 12.5 mg 05/20/20 09:00 05/21/20 08:29 Hydrochlorothiazide 12.5 Mg Capsule PO 12.5 mg DAILY ISIS Adm
--- NOTE | 2020-05-21 12:54 | PM.DS ---
DS: Admitting Diagnosis Admitting Diagnosis Admitting Diagnosis: bladder clot,hypertnsion,urinary retention DS: Discharge Diagnosis Discharge Diagnosis (1) Acute retention of urine: Code(s): R33.8 - Other retention of urine Status: Acute Assessment and Plan: 05/20/20 13:27 Cody Stanford is a 85 year old male see history of kidney stone he recently was seen by his urologist on 05/17 and had a stone removed and Patel catheter was placed, patient states he was doing fine later that day he developed the hematuria and was difficult to urinate and his Patel was not draining, patient went back to the emergency department in [place], his Patel was irrigated and reinserted patient was able to drain it was discharged home however he says after 6 hours he again developed difficulty draining his Patel, he contacted his urologist and patient was asked return to the emergency department here. in the emergency depart his Patel was replaced, there was a concerned the patient may have UTI started the patient on Rocephin, under stress and pain patient blood pressure was elevated and was given hydralazine. currently patient states is feeling little better is scheduled to see his urologist and will have cystoscopy and blood clot evacuation and further recommendation to follow. On 05/19 patient was seen by urologist and taken to urology lab the bladder was irrigated and 3 ways Patel was placed for CBI it was difficult to control the bleeding as patient had taking Plavix, today 05/20 CBI continue to for and the urine is more pinkish starter than red, patient states is feeling much better has less pain, patient denies any abdominal pain nausea or vomiting fever or chills, plan is to continue CBI until urine is clear with as less blood as possible, patient will be seen by urology and further recommendation to follow and discharge plan. patient's is present in the room. (2) Hypertension: Code(s): I10 - Essential (primary) hypertension Status: Inactive Assessment and Plan: continue home regimen and monitor (3) Diabetes: Code(s): E11.9 - Type 2 diabetes mellitus without complications Status: Inactive Assessment and Plan: will continue home regimen and monitor DS: Summary Hospital Course Reason for hospitalization: Chief complaint: bladder clot,hypertnsion,urinary retention Narrative: Cody Stanford is a 85 year old male see history of kidney stone he recently was seen by his urologist on 05/17 and had a stone removed and Patel catheter was placed, patient states he was doing fine later that day he developed the hematuria and was difficult to urinate and his Patel was not draining, patient went back to the emergency department in [place], his Patel was irrigated and reinserted patient was able to drain it was discharged home however he says after 6 hours he again developed difficulty draining his Patel, he contacted his urologist and patient was asked return to the emergency department here. in the emergency depart his Patel was replaced, there was a concerned the patient may have UTI started the patient on Rocephin, under stress and pain patient blood pressure was elevated and was given hydralazine. currently patient states is feeling little better is scheduled to see his urologist and will have cystoscopy and blood clot evacuation and further recommendation to follow. Hospital Course: 05/20/20 13:27 Cody Stanford is a 85 year old male see history of kidney stone he recently was seen by his urologist on 05/17 and had a stone removed and Patel catheter was placed, patient states he was doing fine later that day he developed the hematuria and was difficult to urinate and his Patel was not draining, patient went back to the emergency department in [place], his Patel was irrigated and reinserted patient was able to drain it was discharged home however he says after 6 hours he again developed difficult
--- NOTE | 2020-05-21 14:52 | PC.NURSE ---
Pt and spouse educated at length on catheter care. Instruction with demonstration on how to exchange out leg bag for larger henderson bag. Pt and spouse verbalized understanding. Extra leg bag and urine bag sent with patient. New stat lock in place. Instructed also on how to empty and keep track of output.
== END 2020-05-21 14:50 | disposition home or self-care (01) | DRG 670 ==
LOC: ANHED 07:33 → ANH3MED 07:54
PROVIDERS: Urology; Admitting Provider Family Medicine; Emergency Provider Emergency Medicine; PCP Family Medicine; Visit Provider Family Medicine
PROC: 0TCB8ZZ Extirpation of Matter from Bladder, Via Natural or Artificial Opening Endoscopic (ICD-10-PCS; CPT 52001; principal; 2020-05-19 12:30)
DX: N32.89 Other specified disorders of bladder (principal); N21.0 Calculus in bladder; R33.8 Other retention of urine; R31.0 Gross hematuria; N40.0 Benign prostatic hyperplasia without lower urinary tract symptoms; I10 Essential (primary) hypertension; E11.9 Type 2 diabetes mellitus without complications; I25.10 Atherosclerotic heart disease of native coronary artery without angina pectoris; E66.9 Obesity, unspecified; Z68.34 Body mass index [BMI] 34.0-34.9, adult; Z87.442 Personal history of urinary calculi; Z95.5 Presence of coronary angioplasty implant and graft; Z86.73 Personal history of transient ischemic attack (TIA), and cerebral infarction without residual deficits
CPT/HCPCS: 36415; 74177; 80048; 81001; 82365; 83735; 85014; 85018; 85025; 85027; 87086; 88300; 96361; 96365; 96375; 96376; 99285; A9270; G0378; J0360; J0690; J0696; J2270; J2405; J2704; J3010; J3480; J7030; J7120; J7121; Q9967

== ENCOUNTER 2020-06-03 00:16 | Emergency (ER) | payer MEDICARE, SELFPAY ==
[2020-06-03 00:23] VITALS: BP 157/69; PULSE 70; RESP 16; TEMP 36.1; O2SAT 99
--- NOTE | 2020-06-03 01:10 | ED.MALEGU ---
HPI - Male Genitourinary General Chief complaint: Urogenital-Male Stated complaint: unable to urinate Time Seen by Provider: 06/03/20 00:31 History of Present Illness HPI Narrative: Patient is an 85-year-old male who presents ER with urinary retention. Patient had his Patel exchanged yesterday. They did a voiding trial in office and he failed so he had to have a Patel replaced. He has been having bladder stones broken up recently. No fevers or chills or sweats. Urine stopped draining shortly after dinner and he is developing lower abdominal pressure. Related Data Home Medications Medication Instructions Recorded Confirmed amlodipine 10 mg PO DAILY 05/19/20 05/19/20 aspirin 81 mg PO DAILY 05/19/20 05/19/20 atenolol [Tenormin] 25 mg PO BID 05/19/20 05/19/20 atorvastatin [Lipitor] 40 mg PO DAILY 05/19/20 05/19/20 clopidogrel [Plavix] 75 mg PO DAILY 05/19/20 05/19/20 cyproheptadine 4 mg PO DAILY 05/19/20 05/19/20 escitalopram oxalate 10 mg PO HS 05/19/20 05/19/20 famotidine 20 mg PO DAILY 05/19/20 05/19/20 fenofibrate nanocrystallized 145 mg PO DAILY 05/19/20 05/19/20 finasteride 5 mg PO DAILY 05/19/20 05/19/20 hydrochlorothiazide 12.5 mg PO DAILY 05/19/20 05/19/20 metformin 500 mg PO BID 05/19/20 05/19/20 nitrofurantoin monohyd/m-cryst 100 mg PO Q12H 05/19/20 05/19/20 [Macrobid] olopatadine [Pataday] 1 drp OPHTHALMIC (EYE) DAILY PRN 05/19/20 05/19/20 rifampin 300 mg PO BID 05/19/20 05/19/20 Allergies Allergy/AdvReac Type Severity Reaction Status Date / Time atorvastatin Allergy Mild Hives Verified 05/19/20 12:03 clonidine [From Catapres] Allergy Hives Verified 05/19/20 12:03 Review of Systems Review of Systems: All systems reviewed & are unremarkable except as noted in HPI and below Constitutional: Constitutional: Denies chills and Denies fever(s) Gastrointestinal: Gastrointestinal: Reports abdominal pain, Denies nausea and Denies vomiting Genitourinary: Genitourinary: Reports hematuria and Denies dysuria [facility] Past Medical History Medical History (Updated 06/03/20 @ 01:25 by Francisco Eldridge MD) BPH (benign prostatic hyperplasia) CVA (cerebral vascular accident) Diabetes Hypertension Nephrolithiasis Obesity Social History Social History Smoking status: Never smoker Alcohol intake: former Substance use: never Gender identity (if verbalized by the patient): Male Spiritual care concerns: No Exam Narrative: Exam Narrative: GENERAL: Well-appearing, well-nourished, and in no acute distress. HEAD: Normocephalic, atraumatic. ENT: Mucous membranes moist. ABDOMEN: Soft, mild suprapubic discomfort, nondistended. EXTREMITIES: Normal range of motion. No edema. NEURO: Alert and oriented x3. PSYCH: Normal mood and affect. Course Course Emergency Course: Patel flushed, feels much better, d/c. Vital Signs Vital signs: Vital Signs Temperature 97 F L 06/03/20 00:23 Pulse Rate 70 06/03/20 00:23 Respiratory Rate 16 06/03/20 00:23 Blood Pressure 157/69 H 06/03/20 00:23 Pulse Oximetry 99 06/03/20 00:23 Temperature 97 F L 06/03/20 00:23 Pulse Rate 70 06/03/20 00:23 Respiratory Rate 16 06/03/20 00:23 Blood Pressure 157/69 H 06/03/20 00:23 Pulse Oximetry 99 06/03/20 00:23 MDM - Male Genitourinary Lab Data Labs: Urine Characteristics Cloudy Discharge Plan Discharge Clinical Impression: Complication of Patel catheter Patient Disposition: Home, Self-Care Condition: Stable Instructions: Patel Catheter Placement and Care (ED) Additional Instructions: Return the ER if you have chest pain or shortness of breath, you have increased lower abdominal pain, your Patel is not draining, you have other concerns. Prescriptions: No Action atorvastatin [Lipitor] 40 mg Tablet 40 mg PO DAILY RF: 0 metformin 500 mg tablet 500 mg PO
[2020-06-03 02:00] VITALS: BP 147/66; PULSE 69; RESP 15; O2SAT 98
== END 2020-06-03 02:00 | disposition home or self-care (01) ==
PROVIDERS: Emergency Provider Emergency Medicine; PCP Family Medicine
DX: T83.091A Other mechanical complication of indwelling urethral catheter, initial encounter (principal); N40.0 Benign prostatic hyperplasia without lower urinary tract symptoms; Z86.73 Personal history of transient ischemic attack (TIA), and cerebral infarction without residual deficits; E11.9 Type 2 diabetes mellitus without complications; I10 Essential (primary) hypertension; Z87.442 Personal history of urinary calculi; E66.9 Obesity, unspecified; Z68.34 Body mass index [BMI] 34.0-34.9, adult; Z79.84 Long term (current) use of oral hypoglycemic drugs
CPT/HCPCS: 99281

== ENCOUNTER → 2020-09-03 01:07 | Outpatient (CLI) | payer MEDICARE, SELFPAY ==
[2020-09-03 19:48] LABS: SARS-CoV-2 RNA PCR Negative
== END ==
PROVIDERS: PCP Family Medicine; Visit Provider Urology
DX: Z01.812 Encounter for preprocedural laboratory examination (principal); Z20.822 Contact with and (suspected) exposure to COVID-19
CPT/HCPCS: C9803; U0003; U0005

== ENCOUNTER 2020-09-03 08:05 | Outpatient (CLI) | payer MEDICARE, SELFPAY ==
--- NOTE | 2020-09-03 | ECG_ITS ---
Measurements Intervals [place] Rate: 56 P: 89 AL: 260 QRS: 53 QRSD: 100 T: 77 QT: 458 QTc: 446 Interpretive Statements SINUS BRADYCARDIA WITH FIRST DEGREE AV BLOCK VENTRICULAR PREMATURE COMPLEXES NONSPECIFIC ST & T-WAVE ABNORMALITY- INF/HIGH LAT LEADS BASELINE ARTIFACT- I, III, AVR, AVL, AVF ABNORMAL ECG Electronically Signed On 09-03-2020 10:33:20 [employer] by Everton Aquino D.O.
== END 2020-09-03 08:06 | disposition home or self-care (01) ==
PROVIDERS: PCP Family Medicine; Visit Provider Anesthesiology
DX: I10 Essential (primary) hypertension (principal); R94.31 Abnormal electrocardiogram [ECG] [EKG]
CPT/HCPCS: 93005; C9803; U0003; U0005

== ENCOUNTER 2020-09-07 17:00 | Observation (INO) | payer MEDICARE, SELFPAY ==
[2020-08-26 13:13] VITALS: BMI 33.7
--- NOTE | 2020-09-05 11:13 | WPDANESEPPF ---
Anes - Initial Pre Proc Eval Procedure: Operation Date: 09/06/20 07:30 Proposed Procedures p Transurethral Resection Prostate - Nathan Agrawal MD Date/Time: 09/05/20 11:13 Surgeon: Nathan Agrawal MD Pre Op Diagnosis: BPH Patient Data Age: 85 Gender: M Height: 1.85 m Weight: 116 kg Allergies Allergy/AdvReac Type Severity Reaction Status Date / Time clonidine [From Catapres] Allergy Mild Hives Verified 09/06/20 06:29 Home Medications Medication Instructions Recorded Confirmed Type amlodipine 10 mg PO HS 05/19/20 09/06/20 History aspirin 81 mg PO DAILY 05/19/20 09/06/20 History atenolol [Tenormin] 25 mg PO BID 05/19/20 09/06/20 History atorvastatin [Lipitor] 40 mg PO HS 05/19/20 09/06/20 History clopidogrel [Plavix] 75 mg PO DAILY 05/19/20 09/06/20 History fenofibrate nanocrystallized 145 mg PO HS 05/19/20 09/06/20 History finasteride 5 mg PO DAILY 05/19/20 09/06/20 History hydrochlorothiazide 12.5 mg PO DAILY 05/19/20 09/06/20 History metformin 500 mg PO BID 05/19/20 09/06/20 History olopatadine [Pataday] 1 drp OPHTHALMIC (EYE) DAILY PRN 05/19/20 08/26/20 History docusate sodium 100 mg PO BID #30 cap 05/21/20 09/06/20 Rx escitalopram oxalate 20 mg PO HS 08/26/20 09/06/20 History lorazepam 0.5 mg PO TID PRN 08/26/20 08/26/20 History [id number]-[id number]-ezbuxoj-lutein 1 tablet PO DAILY 08/26/20 09/06/20 History [Centrum] Patient hx anesthesia problems: none Family hx anesthesia problems: none PMFSH Past Medical History Medical History (Updated 09/05/20 @ 11:15 by Nikhil Ugarte DO) Anticoagulant long-term use Anxiety BPH (benign prostatic hyperplasia) CAD (coronary artery disease) CVA (cerebral vascular accident) Diabetes Diabetes type 2, controlled GERD (gastroesophageal reflux disease) Hyperlipidemia Hypertension Nephrolithiasis Obesity Surgical History Surgical History (Updated 09/05/20 @ 11:15 by Nikhil Ugarte DO) History of coronary artery stent placement x4 Social History Social History Smoking status: Never smoker Alcohol intake: never Substance use: never Living arrangements: with family Additional living arrangements comments: Gender identity (if verbalized by the patient): Male Spiritual care concerns: No Anes - Eval Final PreProcedure Day of Procedure 09/05/20 11:13 Patient weight: obese Heart: regular rate and rhythm Lungs: clear to auscultation and normal air movement Airway: Mallampati scale class III Neurological: alert and oriented Last oral intake: >/= 8 hours ASA classification: III Emergent: no Anesthetic plan: proceed Anesthesia type and monitoring: general LMA and standard monitoring Informed Consent: The patient's anesthetic plan and its attendant risks and benefits were discussed with the patient/family/POA. Questions were solicited and answers provided to the satisfaction of the patient/family/POA.
[2020-09-06] VITALS (14 sets, daily range): BP systolic 119–154; BP diastolic 50–95; PULSE 61–86; RESP 10–20; TEMP 36.1–36.9; O2SAT 92–99
[2020-09-06] MEDS: LACTATED RINGERS 1,000 ML 30 ML IV CONT ×2 (06:59→09:41)
[2020-09-06 07:00] LABS: Basophils Absolute Auto 0.1 K/mm3 (0.0-0.1); Basophils Percent Auto 0.8 % (0.2-1.2); Eosinophils Absolute Auto 0.6 K/mm3 (0-0.3); Eosinophils Percent Auto 6.8 % (0-4.4); Hematocrit 41.1 % (42.0-52.0); Hemoglobin 13.9 g/dL (14.0-18.0); Immature Granulocyte Absolute 0.06 K/mm3 (0.00-0.031); Immature Granulocyte Percent A 0.7 % (0-0.5); Lymphocytes Absolute Auto 1.77 K/mm3 (0.9-3.2); Lymphocytes Percent Auto 20.3 % (18.3-44.2); Mean Corpuscular HGB Conc 33.8 g/dl (32-36); Mean Corpuscular Hemoglobin 31.1 pg (26-34); Mean Corpuscular Volume 91.9 fl (80-100); Mean Platelet Volume 10.3 fl (7.4-10.4); Monocytes Absolute Auto 0.9 K/mm3 (0.1-0.6); Monocytes Percent Auto 9.9 % (2.6-8.5); Neutrophils Absolute Auto 5.4 K/mm3 (1.3-6.7); Neutrophils Percent Auto 61.5 % (45.5-73.1); Platelet Count Result 207 k/mm3 (150-375); Red Blood Count 4.47 M/mm3 (4.6-6.20); Red Cell Distribution Width 12.8 % (11.5-14.5); White Blood Count 8.7 K/mm3 (4.5-10.0)
[2020-09-06 07:11] LABS: INR 1.1; Prothrombin Time 14.3 Seconds (11.1-14.7)
[2020-09-06 07:14] LABS: Anion Gap 10 mmol/L (8-16); Blood Urea Nitrogen 19 mg/dL (9-20); Calcium 9.3 mg/dL (8.4-10.2); Carbon Dioxide 25 mmol/L (22-30); Chloride 107 mmol/L (98-107); Estimated CRCL calculation 79 ml/min; Estimated Glomerular Filt Rate > 60; Glucose 139 mg/dL (75-110); Potassium 3.6 mmol/L (3.4-5.0); Sodium 142 mmol/L (137-145)
--- NOTE | 2020-09-06 07:39 | PM.IMHP ---
H&P: HPI History of Present Illness Date/Time: 09/06/20 07:39 Chief Complaint: gross hematuria and urinary retention Narrative: Cody Stanford is a 85 year old male with history of urinary retention and repeated gross hematuria. Presents for TURP Review of Systems Review of Systems: All systems reviewed & are unremarkable except as noted in HPI and below PMFSH Past Medical History Medical History Anticoagulant long-term use Anxiety BPH (benign prostatic hyperplasia) CAD (coronary artery disease) CVA (cerebral vascular accident) Diabetes Diabetes type 2, controlled GERD (gastroesophageal reflux disease) Hyperlipidemia Hypertension Nephrolithiasis Obesity Surgical History Surgical History History of coronary artery stent placement x4 Social History Social History Smoking status: Never smoker Alcohol intake: never Substance use: never Living arrangements: with family Additional living arrangements comments: Gender identity (if verbalized by the patient): Male Spiritual care concerns: No Meds Home Medications and Allergies Home Medications Medication Instructions Recorded Confirmed Type amlodipine 10 mg PO HS 05/19/20 09/06/20 History aspirin 81 mg PO DAILY 05/19/20 09/06/20 History atenolol [Tenormin] 25 mg PO BID 05/19/20 09/06/20 History atorvastatin [Lipitor] 40 mg PO HS 05/19/20 09/06/20 History clopidogrel [Plavix] 75 mg PO DAILY 05/19/20 09/06/20 History fenofibrate nanocrystallized 145 mg PO HS 05/19/20 09/06/20 History finasteride 5 mg PO DAILY 05/19/20 09/06/20 History hydrochlorothiazide 12.5 mg PO DAILY 05/19/20 09/06/20 History metformin 500 mg PO BID 05/19/20 09/06/20 History olopatadine [Pataday] 1 drp OPHTHALMIC (EYE) DAILY PRN 05/19/20 08/26/20 History docusate sodium 100 mg PO BID #30 cap 05/21/20 09/06/20 Rx escitalopram oxalate 20 mg PO HS 08/26/20 09/06/20 History lorazepam 0.5 mg PO TID PRN 08/26/20 08/26/20 History id-ptt-RV-Ut-Cb-umwmtkc-lutein 1 tablet PO DAILY 08/26/20 09/06/20 History [Centrum] Allergies Allergy/AdvReac Type Severity Reaction Status Date / Time clonidine [From Catapres] Allergy Mild Hives Verified 09/06/20 06:29 Vital Signs Vital Signs - 24 hr 09/06/20 06:56 Temperature 36.9 C Pulse Rate 61 Respiratory Rate 16 Blood Pressure 132/95 H Pulse Oximetry 97 Exam Const: General: cooperative HENMT: Head: normal to inspection Eyes: General: appearance normal, both eyes and all related structures Neck: Neck: normal visual inspection Chest: Chest palpation & inspection: normal inspection of the chest Resp: Effort & Inspection: normal respiratory effort Cardio: Rate: regular rate GI: Inspection: normal to inspection H&P: Results Labs Labs: Short CBC 09/06/20 Range/Units 06:50 WBC 8.7 (4.5-10.0) K/mm3 Hgb 13.9 L D (14.0-18.0) g/dL Hct 41.1 L (42.0-52.0) % Plt Count 207 (150-375) k/mm3 BMP 09/06/20 06:50 Sodium 142 Potassium 3.6 Chloride 107 Carbon Dioxide 25 BUN 19 Creatinine 0.80 Glucose 139 H Calcium 9.3 Assessment and Plan Assessment and plan (1) Acute retention of urine: Code(s): R33.8 - Other retention of urine Status: Acute Assessment and Plan: Proceed with TURP (2) Hematuria: Qualifiers: Hematuria type: gross Qualified Code(s): R31.0 - Gross hematuria Code(s): R31.9 - Hematuria, unspecified Status: Acute
--- NOTE | 2020-09-06 07:41 | WPDHPUPDATE1 ---
History and Physical Update Update Date/Time: 09/06/20 07:41 History and Physical has been reviewed, including an updated exam of the patient. There are NO changes in the patient's condition. Risks, benefits, and alternatives have been discussed and questions answered. Patient agrees to proceed with procedure.
[2020-09-06] MEDS: ceFAZolin 2 GM/D5W 50 ML 2 GM/50 ML BAG IVPB (07:47)
--- NOTE | 2020-09-06 07:57 | SUR.OPER ---
Pt arrived with henderson in place, removed without any problems-200ml of urine in bag
[2020-09-06] MEDS: LIDOCAINE HCL 2% GEL UROJET 10 ML PKG MUCOUS MEM (09:25)
--- NOTE | 2020-09-06 09:34 | PM.PROC ---
Procedure Note - Detailed Date of procedure: 09/06/20 Pre-op diagnosis: BPH Post-op diagnosis: same Procedure performed: Transurethral resection of prostate Description of procedure: Patient is taken to the operative suite and correctly identified. Once anesthesia was obtained he was placed in the dorsal lithotomy position and prepped and draped usual sterile fashion. Twenty-six Australian resectoscope sheath was passed in the bladder. Patient has an enlarged obstructing lateral lobes with median lobe which is approaching the trigone area. We were able to visualize both ureteral orifices. We went ahead and resected the lateral lobes and then the median lobe. Using a ball electrode we achieved hemostasis. He does have a very large vascular prostate. Patient has been on Plavix up until 7 days ago. Patient appeared to have an open prostatic channel at this point time. We retrieved chips and sent those for analysis. 2% viscous lidocaine was inserted urethra. Twenty-[address] Australian [address] was placed with 30 cc in the balloon. This was connected to continuous bladder irrigation placed on some gentle traction. Patient is taken recovery stable condition. He will be admitted for CBI. Anesthesia: GLMA Surgeon: Nathan Agrawal MD Drains: Yes Packing: No Pathology: yes Complications: No immediate complications Condition: stable Disposition: PACU
[2020-09-06 09:48] LABS: Glucose Point of Care 178 (65-105)
--- NOTE | 2020-09-06 10:38 | SUR.PHASEI ---
[id number] sbar faxed floor notified
--- NOTE | 2020-09-06 11:02 | SUR.PHASEI ---
[id number] unable to reach nurse to give report, rahul was going to give johanna lee, the message
--- NOTE | 2020-09-06 11:42 | ADMGEN ---
This patient, Cody Stanford, was admitted to Medical Room 261-01 following procedure. Patient/family oriented to hospital policies and general routines including ID bracelet, bed and alarms, visiting hours, pain management, procedures, bathroom and other care routines, personal items, smoking policy, room service/diet, and visiting hours. Information on how to activate the Rapid Response Team has been discussed. Patient/Family are encouraged to report perceived risks to care and to ask questions if they do not understand what they are told or what they should do.
[2020-09-06] MEDS: metFORMIN HCL 500 MG TABLET PO (17:32)
[2020-09-06] MEDS: atenoloL 25 MG TABLET PO (17:32)
[2020-09-06] MEDS: DOCUSATE SODIUM 100 MG CAPSULE PO (17:33)
[2020-09-06] MEDS: FENOFIBRATE NANOCRYSTALLIZED 145 MG TABLET PO (22:49)
[2020-09-06] MEDS: ATORVASTATIN 40 MG TABLET PO (22:49)
[2020-09-06] MEDS: ESCITALOPRAM OXALATE 10 MG TABLET 20 MG PO (22:49)
[2020-09-06] MEDS: amLODIPine BESYLATE 5 MG TABLET 10 MG PO (22:49)
[2020-09-06 23:08] LABS: Glucose Point of Care 143 (65-105)
[2020-09-07] VITALS (7 sets, daily range): BP systolic 104–150; BP diastolic 51–56; PULSE 59–69; RESP 18–20; TEMP 36.1–36.5; O2SAT 95–99
[2020-09-07 06:00] LABS: Hematocrit 30.4 % (42.0-52.0); Hemoglobin 10.2 g/dL (14.0-18.0)
[2020-09-07 06:28] LABS: Anion Gap 6 mmol/L (8-16); Blood Urea Nitrogen 19 mg/dL (9-20); Calcium 8.4 mg/dL (8.4-10.2); Carbon Dioxide 26 mmol/L (22-30); Chloride 106 mmol/L (98-107); Estimated CRCL calculation 89 ml/min; Estimated Glomerular Filt Rate > 60; Glucose 142 mg/dL (75-110); Potassium 3.3 mmol/L (3.4-5.0); Sodium 138 mmol/L (137-145)
[2020-09-07] MEDS: CEPHALEXIN 500 MG CAPSULE PO ×4 (07:56→22:13)
[2020-09-07] MEDS: metFORMIN HCL 500 MG TABLET PO ×2 (07:56→17:25)
[2020-09-07] MEDS: DOCUSATE SODIUM 100 MG CAPSULE PO ×2 (07:56→17:25)
[2020-09-07] MEDS: hydroCHLOROthiazide 12.5 MG CAPSULE PO (07:56)
[2020-09-07] MEDS: atenoloL 25 MG TABLET PO ×2 (07:57→17:26)
--- NOTE | 2020-09-07 07:57 | WPDUROPN2 ---
Progress Note: A&P Assessment and Plan (1) Acute retention of urine: Code(s): R33.8 - Other retention of urine Status: Acute Assessment and Plan: Postop day 1. Transurethral resection of prostate. Will continue require continuous bladder irrigation this morning. We will re-evaluate this afternoon. May require another day for irrigation. (2) Hematuria: Qualifiers: Hematuria type: gross Qualified Code(s): R31.0 - Gross hematuria Code(s): R31.9 - Hematuria, unspecified Status: Acute Assessment and Plan: See above Subjective Subjective Date/Time Seen: 09/07/20 07:57 Post Op day: 1 Principal diagnosis: Urinary retention and hematuria Interval history: doing well at this point time. No complaints. Urine still somewhat pink with minimal CBI going. Review of Systems Review of Systems: All systems reviewed & are unremarkable except as noted in HPI and below Exam Const: General: cooperative and no acute distress Chest: Chest palpation & inspection: normal inspection of the chest Resp: Effort & Inspection: normal respiratory effort Cardio: Rate: regular rate GI: Inspection: normal to inspection Urinary Catheter: Urinary Catheter: patent and draining and urine pink Objective Data Vital Signs Vital Signs: Vital Signs - 24 hr 09/06/20 09:45 09/06/20 10:00 09/06/20 10:22 Temperature 36.8 C Pulse Rate 85 86 85 Respiratory Rate 12 16 20 Blood Pressure 153/67 H 154/68 H 119/66 Pulse Oximetry 93 98 94 09/06/20 10:25 09/06/20 10:30 09/06/20 10:54 Temperature Pulse Rate 77 77 80 Respiratory Rate 10 L 12 12 Blood Pressure 133/59 L 135/59 L Pulse Oximetry 93 92 95 09/06/20 11:25 09/06/20 11:40 09/06/20 12:10 Temperature 36.2 C L 36.2 C L 36.1 C L Pulse Rate 72 73 73 Respiratory Rate 16 16 16 Blood Pressure 139/53 L 139/50 L 134/54 L Pulse Oximetry 96 96 97 09/06/20 13:10 09/06/20 17:10 09/06/20 17:32 Temperature 36.1 C L 36.2 C L Pulse Rate 76 75 74 Respiratory Rate 16 16 Blood Pressure 143/57 H 138/54 L Pulse Oximetry 98 99 09/06/20 20:00 09/07/20 00:00 09/07/20 04:00 Temperature 36.6 C 36.2 C L 36.1 C L Pulse Rate 68 67 69 Respiratory Rate 20 20 18 Blood Pressure 135/56 L 119/51 L 104/51 L Pulse Oximetry 97 98 95 Intake/Output Intake/Output: Intake & Output 09/04/20 09/05/20 09/06/20 09/07/20 23:59 23:59 23:59 23:59 Intake Total 1210 800 Output Total 5627 1393 Balance -8652 -8098 Meds/Results Medications: Active Medications Generic Name Dose Route Start Last Admin Trade Name Freq PRN Reason Stop Dose Admin Hydrocodone Bitart/Acetaminophen 1 tab 09/06/20 11:08 Hydrocodone/Acetaminophen (*Crx) 5-325 Mg Tablet PO Q4H PRN Pain Rated 1-6 Amlodipine Besylate 10 mg 09/06/20 21:00 09/06/20 22:49 Amlodipine Besylate 5 Mg Tablet PO 10 mg HS ISIS Administration Atenolol 25 mg 09/06/20 17:00 09/06/20 17:32 Atenolol 25 Mg Tablet PO 25 mg BID ISIS Administration Atorvastatin Calcium 40 mg 09/06/20 21:00 09/06/20 22:49 Atorvastatin 40 Mg Tablet PO 40 mg HS ISIS Administration Cephalexin HCl 500 mg 09/07/20 09:00 Cephalexin 500 Mg Capsule PO QID ISIS Dextrose 12.5 gm 09/06/20 13:38 Dextrose 50% 25 Gm/50 Ml Syringe IV PUSH PRN PRN Hypoglycemia Protocol Docusate Sodium 100 mg 09/06/20 17:00 09/06/20 17:33 Docusate Sodium 100 Mg Capsule PO 100 mg BID ISIS Administration Escitalopram Oxalate 20 mg 09/06/20 21:00 09/06/20 22:49 Escitalopram Oxalate 10 Mg Tablet PO 20 mg HS ISIS Administration Fenofibrate 145 mg 09/06/20 21:00 09/06/20 22:49 Fenofibrate Nanocrystallized 145 Mg Tablet PO 145 mg HS ISIS Administration Glucagon 1 mg 09/06/20 13:38 Glucagon For Inj 1 Mg Vial IM PRN PRN Hypoglycemia Protocol Glucose 15 gm 09/06/20 13:38 Glucose Oral Gel 15 Gm Of Glucse In 3
[2020-09-07 09:45] LABS: Glucose Point of Care 135 (65-105)
[2020-09-07 13:04] LABS: Glucose Point of Care 122 (65-105)
[2020-09-07 16:56] LABS: Glucose Point of Care 111 (65-105)
[2020-09-07] MEDS: ESCITALOPRAM OXALATE 10 MG TABLET 20 MG PO (22:12)
[2020-09-07] MEDS: FENOFIBRATE NANOCRYSTALLIZED 145 MG TABLET PO (22:12)
[2020-09-07] MEDS: ATORVASTATIN 40 MG TABLET PO (22:13)
[2020-09-07] MEDS: amLODIPine BESYLATE 5 MG TABLET 10 MG PO (22:13)
[2020-09-08 01:26] LABS: Glucose Point of Care 109 (65-105)
[2020-09-08 02:38] VITALS: BP 154/73; PULSE 64; RESP 16; TEMP 36.3; O2SAT 95
[2020-09-08 06:00] VITALS: BP 152/76; PULSE 65; RESP 16; TEMP 36.4; O2SAT 96
[2020-09-08 07:32] LABS: Glucose Point of Care 116 (65-105)
--- NOTE | 2020-09-08 08:06 | WPDUROPN2 ---
Progress Note: A&P Assessment and Plan (1) Acute retention of urine: Code(s): R33.8 - Other retention of urine Status: Acute Assessment and Plan: Urine is clear at this time. Patient had 34 g of benign prostate tissue resected. Will hold CBI. If urine remains clear will discharged later this afternoon with Patel catheter and have it removed in the office next Saturday or Saturday for a voiding trial. Subjective Subjective Date/Time Seen: 09/08/20 08:06 Post Op day: 2 ( transurethral resection of prostate) Principal diagnosis: Urinary retention status post transurethral resection of prostate Interval history: no complaints at this time. Urine clear with minimal CBI. Review of Systems Review of Systems: All systems reviewed & are unremarkable except as noted in HPI and below Exam Const: General: cooperative, comfortable and no acute distress Resp: Effort & Inspection: normal respiratory effort Cardio: Rate: regular rate Urinary Catheter: Urinary Catheter: patent and draining and urine clear Objective Data Vital Signs Vital Signs: Vital Signs - 24 hr 09/07/20 10:00 09/07/20 14:00 09/07/20 17:26 Temperature 36.1 C L 36.5 C Pulse Rate 59 L 61 64 Respiratory Rate 18 18 Blood Pressure 134/56 L 140/51 L Pulse Oximetry 97 97 09/07/20 22:30 09/08/20 02:38 09/08/20 06:00 Temperature 36.1 C L 36.3 C L 36.4 C L Pulse Rate 61 64 65 Respiratory Rate 18 16 16 Blood Pressure 150/55 H 154/73 H 152/76 H Pulse Oximetry 99 95 96 Intake/Output Intake/Output: Intake & Output 09/05/20 09/06/20 09/07/20 09/08/20 23:59 23:59 23:59 23:59 Intake Total 1210 2170 750 Output Total 5656 3250 [facility] -1071 -9797 750 Meds/Results Medications: Active Medications Generic Name Dose Route Start Last Admin Trade Name Freq PRN Reason Stop Dose Admin Hydrocodone Bitart/Acetaminophen 1 tab 09/06/20 11:08 Hydrocodone/Acetaminophen (*Crx) 5-325 Mg Tablet PO Q4H PRN Pain Rated 1-6 Amlodipine Besylate 10 mg 09/06/20 21:00 09/07/20 22:13 Amlodipine Besylate 5 Mg Tablet PO 10 mg HS ISIS Administration Atenolol 25 mg 09/06/20 17:00 09/07/20 17:26 Atenolol 25 Mg Tablet PO 25 mg BID ISIS Administration Atorvastatin Calcium 40 mg 09/06/20 21:00 09/07/20 22:13 Atorvastatin 40 Mg Tablet PO 40 mg HS ISIS Administration Cephalexin HCl 500 mg 09/07/20 09:00 09/07/20 22:13 Cephalexin 500 Mg Capsule PO 500 mg QID ISIS Administration Dextrose 12.5 gm 09/06/20 13:38 Dextrose 50% 25 Gm/50 Ml Syringe IV PUSH PRN PRN Hypoglycemia Protocol Docusate Sodium 100 mg 09/06/20 17:00 09/07/20 17:25 Docusate Sodium 100 Mg Capsule PO 100 mg BID ISIS Administration Escitalopram Oxalate 20 mg 09/06/20 21:00 09/07/20 22:12 Escitalopram Oxalate 10 Mg Tablet PO 20 mg HS ISIS Administration Fenofibrate 145 mg 09/06/20 21:00 09/07/20 22:12 Fenofibrate Nanocrystallized 145 Mg Tablet PO 145 mg HS ISIS Administration Glucagon 1 mg 09/06/20 13:38 Glucagon For Inj 1 Mg Vial IM PRN PRN Hypoglycemia Protocol Glucose 15 gm 09/06/20 13:38 Glucose Oral Gel 15 Gm Of Glucse In 37.5 Gm Tube PO PRN PRN Hypoglycemia Protocol Hydrochlorothiazide 12.5 mg 09/07/20 09:00 09/07/20 07:56 Hydrochlorothiazide 12.5 Mg Capsule PO 12.5 mg DAILY ISIS Administration Hyoscyamine 0.125 mg 09/06/20 11:08 Hyoscyamine Sulfate 0.125 Mg Tablet SUBLINGUAL Q6H PRN Bladder Spasm Dextrose 1,000 mls @ 100 mls/hr 09/06/20 13:38 Dextrose 5% 1,000 Ml IVPB PRN PRN Hypoglycemia Protocol Insulin Aspart 2 - 5 units 09/06/20 17:00 09/08/20 07:29 Insulin Aspart (*Bkc) 100 Units/Ml SUB-Q Not Given [facility]ID[facility] Protocol Lorazepam 0.5 mg 09/06/20 11:08 Lorazepam (*Crx) 0.5 Mg Tablet PO TID PRN Anxiety Metformin HCl 500 mg 09/06/20 17:00
[2020-09-08] MEDS: metFORMIN HCL 500 MG TABLET PO (09:41)
[2020-09-08 09:42] VITALS: PULSE 64
[2020-09-08] MEDS: atenoloL 25 MG TABLET PO (09:42)
[2020-09-08] MEDS: DOCUSATE SODIUM 100 MG CAPSULE PO (09:42)
[2020-09-08] MEDS: CEPHALEXIN 500 MG CAPSULE PO ×2 (09:42→13:29)
[2020-09-08] MEDS: hydroCHLOROthiazide 12.5 MG CAPSULE PO (09:44)
[2020-09-08 11:23] LABS: Glucose Point of Care 132 (65-105)
[2020-09-08 11:27] VITALS: BP 145/55; PULSE 64; RESP 16; TEMP 36.4; O2SAT 96
--- NOTE | 2020-09-08 12:00 | PC.NURSE ---
On 09/08/20, the student, [Susana Gee ], provided care and completed [facility] documentation on this patient. I have reviewed the student's documentation and agree with the findings.
--- NOTE | 2020-09-08 14:44 | PM.DS ---
DS: Admitting Diagnosis Admitting Diagnosis Admitting Diagnosis: BPH DS: Discharge Diagnosis Discharge Diagnosis (1) Acute retention of urine: Code(s): R33.8 - Other retention of urine Status: Acute (2) Hematuria: Qualifiers: Hematuria type: gross Qualified Code(s): R31.0 - Gross hematuria Code(s): R31.9 - Hematuria, unspecified Status: Acute (3) BPH (benign prostatic hyperplasia): Code(s): N40.0 - Benign prostatic hyperplasia without lower urinary tract symptoms Status: Inactive DS: Summary Hospital Course Hospital Course: See below description. Time Spent with Patient Time attestation: Patient underwent a TURP with Dr. Agrawal on 09/06/2020. He tolerated the procedure well, was then transferred to recovery in stable condition then to the floor for further observation. He continued to have gross hematuria on CBI following surgery, which has improved. He has been off CBI for >5 hours and urine is clear to pink at most. He is tolerating diet and has minimal pain. He will go home with a henderson and have it removed next week in the office with me. He will resume a diet as tolerated, activity no straining, no dressing changes needed. Exam Resp: Effort & Inspection: normal respiratory effort Cardio: Rate: regular rate GI: GI Palp: Yes Soft to palpation and No Tenderness to palpation present (GI) : General: Yes no CVA tenderness Urinary Catheter: Urinary Catheter: patent and draining, urine clear and urine pink Extrem: General: no edema DS: Data Data Completed and Pending Completed studies during hospitalization: Pending at discharge 09/06/20 08:07 Surgical [PTH] Routine Labs on day of discharge: Labs from last 24 hours 09/08/20 09/08/20 09/07/20 11:18 07:25 23:53 POC Capillary Glucose 132 H 116 H 109 09/07/20 16:29 POC Capillary Glucose 111 H Discharge Plan Discharge Attending physician on discharge: Nathan Agrawal Discharging Clinician: Kath Garcias Anticipated Discharge Date/Time: 09/08/20 14:40 Patient Disposition: Home, Self-Care Activity: may shower and no straining Diet: as tolerated Discharge Instructions: Follow up on Saturday09/13/2020 at 2:00pm with Kath Torrance ANP for henderson removal. Irrigate henderson if it becomes bloody, report any clogging of the catheter, fevers of >102, cloudy or malodorous urine. Patient Instructions: Clopidogrel (By mouth), Henderson Catheter Placement and Care (DC), Transurethral Prostatectomy (DC) Follow-up/Referrals: Nathan Agrawal MD [Physician] - Discharge Medications: New sulfamethoxazole-trimethoprim [Bactrim DS] 800-160 mg tablet 1 tablet PO DAILY Qty: 5 RF: 0 Continued atorvastatin [Lipitor] 40 mg Tablet 40 mg PO HS RF: 0 metformin 500 mg tablet 500 mg PO BID RF: 0 atenolol [Tenormin] 25 mg Tablet 25 mg PO BID RF: 0 amlodipine 10 mg tablet 10 mg PO HS RF: 0 finasteride 5 mg tablet 5 mg PO DAILY RF: 0 fenofibrate nanocrystallized 145 mg tablet 145 mg PO HS RF: 0 hydrochlorothiazide 12.5 mg tablet 12.5 mg PO DAILY RF: 0 olopatadine [Pataday] 0.2 % Drops 1 drp ophthalmic (eye) DAILY PRN (Reason: Dry Eye(S)) RF: 0 docusate sodium 100 mg Capsule 100 mg PO BID Qty: 30 RF: 0 lorazepam 0.5 mg Tablet 0.5 mg PO TID PRN (Reason: Anxiety) RF: 0 escitalopram oxalate 20 mg tablet 20 mg PO HS RF: 0 Held clopidogrel [Plavix] 75 mg Tablet 75 mg PO DAILY RF: 0 Hold Instructions: Resume on 05/25/20. aspirin 81 mg Tablet,Delayed Release (Dr/Ec) 81 mg PO DAILY RF: 0 Hold Instructions: Resume on 09/13/20. Centrum 0.4-162-18 mg Tablet 1 tablet PO DAILY RF: 0 Hold Instructions: Resume on 09/13/20. Other Ambulatory Orders: Basic Metabolic Panel (Routine) Timeframe: 2 Months Location: Determined by Patient Ordered By: Nathan Hooks Bl
== END 2020-09-08 15:50 | disposition home or self-care (01) ==
LOC: ANHSURGERY 09-08 09:47 → ANH2MED 09-08 09:47
PROVIDERS: Admitting Provider Urology; PCP Family Medicine; Visit Provider Urology
PROC: 0VT08ZZ Resection of Prostate, Via Natural or Artificial Opening Endoscopic (ICD-10-PCS; CPT 52601; principal; 2020-09-06 07:30)
DX: N40.0 Benign prostatic hyperplasia without lower urinary tract symptoms (principal); R33.8 Other retention of urine; R31.9 Hematuria, unspecified; I25.10 Atherosclerotic heart disease of native coronary artery without angina pectoris; I10 Essential (primary) hypertension; E78.5 Hyperlipidemia, unspecified; E11.9 Type 2 diabetes mellitus without complications; K21.9 Gastro-esophageal reflux disease without esophagitis; F41.9 Anxiety disorder, unspecified; Z86.73 Personal history of transient ischemic attack (TIA), and cerebral infarction without residual deficits; E66.9 Obesity, unspecified; Z68.34 Body mass index [BMI] 34.0-34.9, adult; Z79.02 Long term (current) use of antithrombotics/antiplatelets; Z79.84 Long term (current) use of oral hypoglycemic drugs; Z79.82 Long term (current) use of aspirin; Z95.5 Presence of coronary angioplasty implant and graft
CPT/HCPCS: 52601; 36415; 80048; 82948; 85014; 85018; 85025; 85610; 85730; 88305; A9270; G0378; J0690; J1100; J2405; J2704; J3010; J7120

== ENCOUNTER 2020-10-24 09:32 | Outpatient (CLI) | payer MEDICARE, SELFPAY ==
--- NOTE | 2020-10-24 | ECG_ITS ---
Measurements Intervals [place] Rate: 62 P: 51 IN: 262 QRS: 23 QRSD: 96 T: 87 QT: 426 QTc: 436 Interpretive Statements SINUS RHYTHM WITH FIRST DEGREE AV BLOCK NONSPECIFIC ST & T-WAVE ABNORMALITY- INF/HIGH LAT LEADS ABNORMAL ECG Electronically Signed On 10-24-2020 10:49:42 CDT by Everton Aquino D.O.
[2020-10-24 10:29] LABS: Basophils Absolute Auto 0.1 K/mm3 (0.0-0.1); Eosinophils Absolute Auto 0.4 K/mm3 (0-0.3); Eosinophils Percent Auto 5.5 % (0-4.4); Hematocrit 38.3 % (42.0-52.0); Hemoglobin 12.8 g/dL (14.0-18.0); Immature Granulocyte Absolute 0.04 K/mm3 (0.00-0.031); Immature Granulocyte Percent A 0.6 % (0-0.5); Lymphocytes Absolute Auto 1.71 K/mm3 (0.9-3.2); Lymphocytes Percent Auto 24.5 % (18.3-44.2); Mean Corpuscular HGB Conc 33.4 g/dl (32-36); Mean Corpuscular Hemoglobin 31.1 pg (26-34); Mean Platelet Volume 10.6 fl (7.4-10.4); Monocytes Absolute Auto 0.8 K/mm3 (0.1-0.6); Monocytes Percent Auto 12.1 % (2.6-8.5); Neutrophils Absolute Auto 3.9 K/mm3 (1.3-6.7); Neutrophils Percent Auto 56.3 % (45.5-73.1); Platelet Count Result 183 k/mm3 (150-375); Red Blood Count 4.12 M/mm3 (4.6-6.20); Red Cell Distribution Width 13.6 % (11.5-14.5)
[2020-10-24 10:39] LABS: Partial Thromboplastin Time 45.8 SECONDS (22.3-36.8)
[2020-10-24 10:42] LABS: Anion Gap 8 mmol/L (8-16); Blood Urea Nitrogen 18 mg/dL (9-20); Calcium 9.5 mg/dL (8.4-10.2); Carbon Dioxide 25 mmol/L (22-30); Chloride 107 mmol/L (98-107); Estimated Glomerular Filt Rate > 60; Glucose 216 mg/dL (75-110); Potassium 3.7 mmol/L (3.4-5.0); Sodium 140 mmol/L (137-145)
== END 2020-10-24 09:33 | disposition home or self-care (01) ==
PROVIDERS: PCP Family Medicine; Referring Provider Student in an Organized Health Care Education/Training Program; Visit Provider Urology
DX: Z01.818 Encounter for other preprocedural examination (principal); N40.0 Benign prostatic hyperplasia without lower urinary tract symptoms; R31.0 Gross hematuria; I44.30 Unspecified atrioventricular block; I10 Essential (primary) hypertension
CPT/HCPCS: 36415; 80048; 85025; 85610; 85730; 93005